=== PATIENT | male | born 2000 | race Caucasian/White ===

== ENCOUNTER 2023-06-22 09:35 | Emergency (ER) | payer MEDICAID, OTHER ==
[~2023-06-22] VITALS: Ht 165.1 cm; Wt 56.8 kg
[2023-06-22] MEDS ORDERED: MORPHINE SULFATE INJ 2 MG/ml SYRG IV ONE (10:15)
[2023-06-22] MEDS ORDERED: ONDANSETRON HCL 4 MG/2 ML VIAL IV ONE (10:15)
[2023-06-22 10:20] VITALS: PULSE 89; RESP 20; O2SAT 96
[2023-06-22 11:20] VITALS: TEMP 98.2; O2SAT 100
[2023-06-22 11:47] VITALS: BP 122/68; PULSE 82; RESP 20
== END 2023-06-22 11:46 | disposition short-term general hospital (02) ==
LOC: EDBD 09:35 → ER 09:35
DX: S43.005A Unspecified dislocation of left shoulder joint, initial encounter (principal); W18.39XA Other fall on same level, initial encounter; Y93.89 Activity, other specified; Y92.89 Other specified places as the place of occurrence of the external cause; Y99.8 Other external cause status
CPT/HCPCS: 23650; 73020; 96374; 96375; 99285; J2270; J2405

== ENCOUNTER 2024-08-02 00:24 | Emergency (ER) | payer MEDICAID, OTHER ==
[~2024-08-02] VITALS: Ht 170.2 cm; Wt 59.7 kg
--- NOTE | 2024-08-02 02:34 | DVH ---
XY L HAND 3V XRAY INDICATION: DOG BITES TECHNICAL DATA: Frontal, oblique and lateral views were obtained of the left hand. COMPARISON: None IMPRESSION: No acute fracture dislocation. No radiopaque foreign body or evidence of osseous erosion. No soft t issue gas.
[2024-08-02 02:35] VITALS: BP 110/65; PULSE 75; RESP 18; TEMP 99; O2SAT 98
--- NOTE | 2024-08-02 02:35 | DVH ---
XY R HAND 3 VIEW XRAY, INDICATION: DOG BITES TECHNICAL DATA: Frontal, oblique and lateral views were obtained of the right hand. COMPARISON: None IMPRESSION: No acute fracture or dislocation. No evidence of radiopaque foreign body. No discrete soft tissue gas or osseous erosion.
[2024-08-02] MEDS: TETANUS-DIPTH-ACEL PERTUSSIS 0.5ML SYR Tdap IM ONE (03:30)
[2024-08-02] MEDS ORDERED: AUG875T PO (03:40)
--- NOTE | 2024-08-02 03:40 | ED.PDOC ---
Mult. trauma (HPI) HPI Comments PATIENT PICKED UP A STRAY DOG TO PUT IT OUT OF THEIR YARD, THE DOG BIT HIM ON BOTH HANDS. PT HAS PUNCTURE WOUNDS ON THE LEFT AND RIGHT HANDS, LARGER ON THE LEFT PALM. WRAPPED IN TRIAGE. Chief Complaint: Animal Bite Time Seen by MD: 00:51 Primary Care Provider: NONE Reviewed notes: Nurses Notes, Medications, Allergies Allergies: Coded Allergies: NO KNOWN ALLERGIES (Unverified , 06/22/23) Home Meds Discontinued Scripts Amoxicillin & Pot Clavulanate (AUGMENTIN TABLET) 875 Mg Tb, 875 MG PO BID for 7 Days, #14 TAB Prov:MESHA CHAVES 08/02/24 Information Source: Patient Mode of Arrival: Ambulatory Past Medical History PAST MEDICAL HISTORY: Anxiety, Depression Surgical History: Denies all surgeries Family History Family History: Unobtainable Social History Smoker: Non-Smoker Alcohol: Denies ETOH Use Drugs: Denies Drug Use Lives In: Home Constitutional: denies: chills, diaphoresis, fatigue, fever, malaise, sweats, weakness, others EENTM: denies: blurred vision, double vision, ear bleeding, ear discharge, ear drainage, ear pain, ear ringing, eye pain, eye redness, hearing loss, mouth pain, mouth swelling, nasal discharge, nose bleeding, nose congestion, nose pain, photophobia, tearing, throat pain, throat swelling, voice changes, others Respiratory: denies: cough, hemoptysis, orthopnea, SOB at rest, shortness of breath, SOB with excertion, stridor, wheezing, others Cardiovascular: denies: chest pain, dizzy spells, diaphoresis, Dyspnea on exertion, edema, irregular heart beat, left arm pain, lightheadedness, palpitations, PND, syncope, others Gastrointestinal: denies: abdomen distended, abdominal pain, blood streaked bowels, constipated, diarrhea, dysphagia, difficulty swallowing, hematemesis, melena, nausea, poor appetite, poor fluid intake, rectal bleeding, rectal pain, vomiting, others Genitourinary: denies: burning, dysuria, flank pain, frequency, hematuria, incontinence, penile discharge, penile sore, pain, testicle pain, testicle swelling, urgency, others Neurological: denies: dizziness, fainting, headache, left sided numbness, left sided weakness, numbness, paresthesia, pre-existing deficit, right sided numbness, right sided weakness, seizure, speech problems, tingling, tremors, weakness, others Musculoskeletal: denies: back pain, gout, joint pain, joint swelling, muscle pain, muscle stiffness, neck pain, others Integumetry: reports: laceration (left palm ), wounds (right palm punture wound); denies: bruises, change in color, change in hair/nails, dryness, lesions, lumps, rash, others Allergic/Immunocompromised: denies: Difficulty Healing, Frequent Infections, Hives, Itching, others Hematologic/Lymphatic: denies: anemia, blood clots, easy bleeding, easy bruising, swollen glands, others Endocrine: denies: excessive hunger, excessive sweating, excessive thirst, excessive urination, flushing, intolerance to cold, intolerance to heat, unexplained weight gain, unexplained weight loss, others Psychiatric: denies: anxiety, bipolar disorder, depression, hopeless, panic disorder, schizophrenia, sleepless, suicidal, others Physical Exam General Appearance: No Apparent Distress, Normal HEENT: Pharynx Normal Neck: Full Range of Motion, Non-Tender Respiratory: Lungs Clear, No Respiratory Distress, Normal Breath Sounds Cardiovascular: No Murmur, Normal Peripheral Pulses, Regular Rate/Rhythm Breast Exam: Deferred Gastrointestinal: Non Tender, Soft Genitalia: Deferred Pelvic: Deferred Rectal: Deferred Extremities: Normal capillary refill, Normal inspection, Normal range of motion, Non-tender, No pedal edema Musculoskeletal : Apperance: Normal Neurologic: Alert, inspector raw quartz II-XII nml as Tested, No Motor Deficits, Normal Affect, Normal Mood, No Sensory Deficits Cerebellar Function: Normal Reflexes: Normal Skin: Dry, Lacerations (left palm 1.5 full thickness bleeding controlled), Normal Color, Warm Lymphatic: No Adenopathy Was a procedure done? Was a procedure done?: Yes Sedation Sedation?: No Informed consent obtained: Yes Laceration Repair : Location left palm Length 1.5 cm Anesthetic: Lidocaine, Without epi Laceration Repair Prep: Saline Laceration Repair Wound Comple: epidermis/dermis repair Laceration Repair: Number of sutures (4), Simple Informed consent obtained: Yes Risks, benefits, and alternati: Yes Notes pt tolerated well with minimal blood loss Differential Diagnosis Multiple Trauma: Fractures, Vascular Injury, Foreign Body X-Ray, Labs, Meds, VS Vital Signs Date Time Temp Pulse Resp B/P (MAP) Pulse Ox O2 Delivery O2 Flow Rate FiO2 08/02/24 02:35 99.0 75 17 110/65 (80) 98 99.0 08/02/24 02:35 75 18 98 Room Air 08/02/24 00:30 99.2 113 18 120/71 (87) 98 X-Ray, Labs, Meds, VS Comment See procedure note. Prophylactic antibiotics script to pharmacy. 5-7 days. Return precautions given for infection or uncontrolled bleeding. Medications as prescribed side effects discussed. Indicates understanding agrees with discharge care plan Time of 1ST Reevaluation: 03:39 Reevaluation 1ST: Improved Patient Education/Counseling: Diagnosis, Treatment, Prognosis, Need For Follow Up Family Education/Counseling: Diagnosis, Treatment, Prognosis, Need For Follow Up Departure 1 Departure Time of Disposition: 03:39 Impression: Primary Impression: Dog bite of hand Qualified Codes: S61.459A - Open bite of unspecified hand, initial encounter; W54.0XXA - Bitten by dog, initial encounter Disposition: 01 HOME / SELF CARE / HOMELESS Condition: Stable Discharged With: Self Critical Care Note Critical Care Time?: No Stability Stability form required: MESHA Hanna Aug 02, 2024 03:40
[2024-08-02] MEDS: HYDROcodone-ACET 5/325MG TAB PO ONE (03:44)
== END 2024-08-02 03:47 | disposition home or self-care (01) ==
LOC: ER 00:24
DX: S61.412A Laceration without foreign body of left hand, initial encounter (principal); W54.0XXA Bitten by dog, initial encounter; Y93.89 Activity, other specified; Y92.89 Other specified places as the place of occurrence of the external cause; Y99.8 Other external cause status
CPT/HCPCS: 12001; 73130; 90471; 90715